=== PATIENT | male | born 1940 | race Caucasian/White ===

== ENCOUNTER 2017-12-31 20:34 | Emergency (ER) | payer MEDICARE, OTHER ==
[~2017-12-31] VITALS: Ht 170.2 cm; Wt 109.1 kg
[2017-12-31 20:39] VITALS: BP 145/89; TEMP 97.3
[2017-12-31 20:44] VITALS: PULSE 74
[2017-12-31 20:57] LABS: BASO # 0.1 (0.0-0.2); BASO % 0.8 % (0.0-2.0); EOS # 0.3 (0.0-0.7); EOS % 4.5 % (0-4.0); GRAN # 4.7 (1.4-6.5); GRAN % 64.7 % (42.2-75.2); HEMATOCRIT 53.7 % (42.0-52.0); LYMPH # 1.2 (1.2-3.4); LYMPH % 16.1 % (20.0-51.0); MEAN CELL VOLUME 103 fl (80.0-100.0); MEAN CORPUSCULAR HEMOGLOBIN 31 pg (27.0-31.0); MEAN CORPUSCULAR HGB CONC 30 g/dl (33.0-37.0); MEAN PLATELET VOLUME 9.9 fl (7.4-10.4); MONO % 13.5 % (1.7-9.3); PLATELET COUNT 192 K/mm3 (130-400); RED BLOOD COUNT 5.23 M/mm3 (4.20-5.60); REDCELL DISTRIBUTION WIDTH-CV 13.9 % (11.5-14.5)
[2017-12-31 21:09] LABS: ARTERIAL BLD GAS TCO2 CT 41.4; ARTERIAL BLOOD GAS BASE EXCESS 6.1 (-2-2); ARTERIAL BLOOD GAS HCO3 38.5 meq/L (22-26); ARTERIAL BLOOD GAS pH 7.22 (7.35-7.45)
[2017-12-31 21:10] LABS: ALANINE AMINOTRANSFERASE 42 U/L (21-72); ALBUMIN 3.8 gm/dL (3.5-5.0); ALKALINE PHOSPHATASE 100 U/L (50-136); ANION GAP 7 mmol/L (7-16); AST,SGOT 31 U/L (15-37); BILIRUBIN,TOTAL 0.6 mg/dL (0.0-1.0); BLOOD UREA NITROGEN 60 mg/dL (9-20); C-REACTIVE PROTEIN 3.1 mg/dL (0.0-0.9); CARBON DIOXIDE 39 mmol/L (22-30); CHLORIDE 96 mmol/L (98-107); CREATININE, serum 1.39 mg/dL (0.66-1.25); GLUCOSE 127 mg/dL (74-106); POTASSIUM 4.7 mmol/L (3.4-5.0); SODIUM 142 mmol/L (137-145); TOTAL PROTEIN 6.9 gm/dL (6.4-8.2)
[2017-12-31 21:12] LABS: ARTERIAL BLOOD GAS PCO2 96.2 mmHg (35-45); ARTERIAL BLOOD GAS PO2 136.5 mmHg (80-100)
[2017-12-31 21:12] LABS: ACETAMINOPHEN < 10 ug/mL (10-30); ALCOHOL(ethanol),MEDICAL < 10 mg/dL
[2017-12-31 21:16] LABS: PROTHROMBIN TIME 11.8 SECONDS (9.7-12.8)
[2017-12-31 21:25] LABS: TROPONIN-I 0.133 ng/mL (0.000-0.034)
== END 2018-01-01 00:40 | disposition short-term general hospital (02) ==
LOC: COL.ER 20:34
PROVIDERS: Emergency Medicine
DX: J18.1 Lobar pneumonia, unspecified organism (principal); I11.0 Hypertensive heart disease with heart failure; J96.90 Respiratory failure, unspecified, unspecified whether with hypoxia or hypercapnia; I50.9 Heart failure, unspecified; J81.1 Chronic pulmonary edema; I21.4 Non-ST elevation (NSTEMI) myocardial infarction; E78.5 Hyperlipidemia, unspecified; Z87.891 Personal history of nicotine dependence
CPT/HCPCS: J1644; J2250; J2310; J2405; J2543; J2704; J3010; Q9967

== ENCOUNTER → 2018-01-12 | Outpatient (CLI) | payer MEDICARE, OTHER | LOC: COL.PUL 08:00 | DX: R06.09 Other forms of dyspnea (principal); R60.9 Edema, unspecified ==

== ENCOUNTER → 2018-02-03 | Outpatient (CLI) | payer MEDICARE, OTHER | LOC: COL.PUL 01-20 08:00 | DX: R06.02 Shortness of breath (principal) ==

== ENCOUNTER 2018-09-25 16:55 | Inpatient (IN) | payer MEDICARE, OTHER ==
[~2018-09-25] VITALS: Ht 170.2 cm; Wt 110.4 kg
[2018-09-25] MEDS ORDERED: PROSCAR 5MG5 MG PO (17:32)
[2018-09-25] MEDS ORDERED: INDERAL 20MG20 MG PO (17:32)
[2018-09-25] MEDS ORDERED: INDERAL40 MG PO (17:32)
[2018-09-25] MEDS ORDERED: PERCOCET 325 MG1 TAB PO (17:33)
[2018-09-25] MEDS ORDERED: FLONASE NASAL S16 GM NAS (17:33)
[2018-09-25] MEDS ORDERED: ZOCOR 20MG20 MG PO (17:34)
[2018-09-25] MEDS ORDERED: LOTENSIN40 MG PO (17:34)
[2018-09-25] MEDS ORDERED: CYMBALTA 30MG30 MG PO (17:34)
[2018-09-25] MEDS ORDERED: AMBIEN 10MG10 MG PO (17:35)
[2018-09-25] MEDS ORDERED: HCTZ 25MG TAB25 MG PO (17:36)
[2018-09-25] MEDS ORDERED: NORCO 325 MG-51 TAB PO (17:37)
[2018-09-25 17:38] LABS: BASO # 0.1 (0.0-0.2); EOS # 0.6 (0.0-0.7); EOS % 9.5 % (0-4.0); GRAN # 3.5 (1.4-6.5); GRAN % 57.9 % (42.2-75.2); HEMATOCRIT 50.7 % (42.0-52.0); HEMOGLOBIN 15.7 g/dl (13.5-18.0); LYMPH # 1.1 (1.2-3.4); LYMPH % 17.4 % (20.0-51.0); MEAN CELL VOLUME 105 fl (80.0-100.0); MEAN CORPUSCULAR HEMOGLOBIN 32 pg (27.0-31.0); MEAN CORPUSCULAR HGB CONC 31 g/dl (33.0-37.0); MEAN PLATELET VOLUME 10.1 fl (7.4-10.4); MONO # 0.9 (0.1-0.6); MONO % 13.9 % (1.7-9.3); PLATELET COUNT 172 K/mm3 (130-400); RED BLOOD COUNT 4.84 M/mm3 (4.20-5.60); REDCELL DISTRIBUTION WIDTH-CV 13.8 % (11.5-14.5)
[2018-09-25 17:41] LABS: PROTHROMBIN TIME 10.9 SECONDS (9.7-12.8)
[2018-09-25 17:52] LABS: ALANINE AMINOTRANSFERASE 14 U/L (21-72); ALBUMIN 3.7 gm/dL (3.5-5.0); ALKALINE PHOSPHATASE 96 U/L (50-136); ANION GAP 6 mmol/L (7-16); AST,SGOT 22 U/L (15-37); BILIRUBIN,TOTAL 0.6 mg/dL (0.0-1.0); BLOOD UREA NITROGEN 67 mg/dL (9-20); CALCIUM 8.4 mg/dL (8.4-10.2); CARBON DIOXIDE 35 mmol/L (22-30); CHLORIDE 96 mmol/L (98-107); CREATININE, serum 1.56 (0.66-1.25); GLUCOSE 121 mg/dL (74-106); LIPASE 156 U/L (23-300); MAGNESIUM 2.5 mg/dL (1.6-2.3); PHOSPHOROUS 4.4 mg/dL (2.5-4.5); POTASSIUM 5.2 mmol/L (3.4-5.0); SODIUM 137 mmol/L (137-145); TOTAL PROTEIN 6.6 gm/dL (6.4-8.2)
[2018-09-25 17:57] LABS: ALCOHOL(ethanol),MEDICAL < 10 mg/dL
[2018-09-25 18:04] LABS: TROPONIN-I < 0.012 ng/mL (0.000-0.035)
[2018-09-25 18:18] LABS: ARTERIAL BLD GAS O2 SATURATION 92.2 % (92-100); ARTERIAL BLD GAS TCO2 CT 34.5; ARTERIAL BLOOD GAS BASE EXCESS 2.7 (-2-2); ARTERIAL BLOOD GAS HCO3 32.3 meq/L (22-26); ARTERIAL BLOOD GAS PCO2 72.1 mmHg (35-45); ARTERIAL BLOOD GAS PO2 71.2 mmHg (80-100); ARTERIAL BLOOD GAS pH 7.27 (7.35-7.45)
--- NOTE | 2018-09-25 19:35 | NUR ---
Dr. Mcdonald here at this time. He gives report of the patient and plans to visit with him when he arrives on the unit.
--- NOTE | 2018-09-25 19:40 | NUR ---
Report called over at this time from DEEPALI Monroe in the ED. Patient will be brought over shortly
--- NOTE | 2018-09-25 20:02 | NUR ---
Patient arrives at this time via stretcher. Patient transfers self to unit bed via stand and pivot. Patient is very angry and not cooperative. After being told the kitchen was closed and there were no diet orders entered yet patient stated "I'm leaving. I can do my own care at home. I need to eat." Patient proceeded to stand up and push this nurse out of the way. Brought Dr. Mcdonald in the room to speak with the patient regarding his behavior. Attached patient to unit monitors. Assessment complete. Patient has an abrasion on his left elbow that is clean and has some dry flaking skin on his right forarm. Lungs sounds are clear and diminished in all crane. Patient's heart rate in bradycardic ranging in the 40's-50's. Patient continues to request food and be uncooperative with staff. Patient provided with snack. No further needs at this time. Will continue to monitor. Call light within reach.
--- NOTE | 2018-09-25 20:15 | NUR ---
Went through patient's belongings with his permission. Patient stated that he does have a wallet with him with "a couple hundred dollars in it". Pulled out wallet and counted money in front of patient. Total of $205. Recommended to patient that he put wallet in the unit safe. He denies and states "just put it in the closet". Patient also has a phone, comb, and 2 changes of clothing. Belongings placed in the room closet.
[2018-09-25 22:41] LABS: COLLECTION METHOD CLEAN CATCH
[2018-09-25 22:54] LABS: PH 5 (5-8); SQUAMOUS EPITHELIAL None Seen /hpf; URINE APPEARANCE Clear; URINE BACTERIA None Seen /hpf; URINE BILIRUBIN Negative (NEGATIVE); URINE BLOOD Negative (NEGATIVE); URINE COLOR Yellow; URINE GLUCOSE Negative (NEGATIVE); URINE KETONE Negative (NEGATIVE); URINE LEUKOCYTE ESTERASE Trace (NEGATIVE); URINE NITRATE Negative (NEGATIVE); URINE PROTEIN(semi-quant) Negative (NEGATIVE); URINE UROBILINOGEN Negative (NEGATIVE)
[2018-09-26] VITALS (7 sets, daily range): BP systolic 103–140; BP diastolic 49–92; PULSE 43–61; TEMP 97.4–98.4
--- NOTE | 2018-09-26 00:05 | NUR ---
Patient was placed on BiPAP by RT Natividad. BiPAP continues to alarm for low tidal volumes due to patient laying on his side and pushing on the mask. Attempted to reposition him for a better mask fit, but patient was uncooperative and pushed back against staff. Mask was unable to be replaced.
--- NOTE | 2018-09-26 04:00 | NUR ---
Patient awake at this time and requesting to use the urinal and have something to drink. Assisted to stand at the side of the bed by standby assist. Coffee and crackers provided to the patient per his request. Vitals have remained stable. No signs of distress. Patient has chronic complaint of pain in his left knee. Discussed with Dr. Mcdonald that pain medications would be restarted in the morning depending on how he did overnight. No further needs at this time. Will continue to monitor, call light within reach.
[2018-09-26 05:25] LABS: ARTERIAL BLD GAS O2 SATURATION 93.1 % (92-100); ARTERIAL BLD GAS TCO2 CT 37.3; ARTERIAL BLOOD GAS BASE EXCESS 5.3 (-2-2); ARTERIAL BLOOD GAS PO2 70.1 mmHg (80-100); ARTERIAL BLOOD GAS pH 7.29 (7.35-7.45)
[2018-09-26 05:26] LABS: ARTERIAL BLOOD GAS PCO2 74.7 mmHg (35-45)
--- NOTE | 2018-09-26 07:44 | NUR ---
Bedside report given to DEEPALI Bates
--- NOTE | 2018-09-26 07:45 | NUR ---
Bedside report received from DEEPALI Hagen.
--- NOTE | 2018-09-26 08:00 | NUR ---
Assessment completed. Pt upset with nursing staff. States he would like to be checked on every hour. Discussed plan of care r/t pulmonary consult and bipap mask. Pt would like to talk to doctors about the plan. Offered to reposition pt in bed. Pt request to sit on side of bed to eat breakfast. Breakfast ordered for pt. Pt watching tv at this time. Call light in reach.
--- NOTE | 2018-09-26 10:10 | NUR ---
Pt remains on bipap mask. Pt trying to talk to nursing staff and encouraged to focus on breathing while on bipap. Pt now resting, VSS. CAll light in reach.
--- NOTE | 2018-09-26 10:55 | NUR ---
KAMILA attempted to meet with the patient. The patient's nurse advised the SW that labs were not back and SW could not enter the room. Dr. Don contacted KAMILA and stated that the patient expressed to him that he wants to update the DPOA-HC the patient has on file. SW to follow-up once entrance is allowed into the room. SW will continue to follow.
[2018-09-26 11:12] LABS: ARTERIAL BLD GAS O2 SATURATION 97.2 % (92-100); ARTERIAL BLD GAS TCO2 CT 37.8; ARTERIAL BLOOD GAS BASE EXCESS 8.3 (-2-2); ARTERIAL BLOOD GAS HCO3 35.9 meq/L (22-26); ARTERIAL BLOOD GAS PO2 92.1 mmHg (80-100); ARTERIAL BLOOD GAS pH 7.38 (7.35-7.45)
--- NOTE | 2018-09-26 11:25 | NUR ---
Pt tolerated bipap mask well. Bipap mask off and placed on 4L/NC to get ready to go to CT.
--- NOTE | 2018-09-26 11:30 | NUR ---
Pt left unit for CT chest via wheelchair with watch technician. Bed linens changed.
[2018-09-26 11:34] LABS: BASO % 0.3 % (0.0-2.0); EOS % 0.2 % (0-4.0); GRAN # 5.2 (1.4-6.5); GRAN % 82.4 % (42.2-75.2); HEMATOCRIT 46.8 % (42.0-52.0); HEMOGLOBIN 14.8 g/dl (13.5-18.0); LYMPH # 0.5 (1.2-3.4); MEAN CELL VOLUME 103 fl (80.0-100.0); MEAN CORPUSCULAR HEMOGLOBIN 33 pg (27.0-31.0); MEAN CORPUSCULAR HGB CONC 32 g/dl (33.0-37.0); MEAN PLATELET VOLUME 9.8 fl (7.4-10.4); MONO # 0.6 (0.1-0.6); MONO % 8.8 % (1.7-9.3); PLATELET COUNT 168 K/mm3 (130-400); RED BLOOD COUNT 4.54 M/mm3 (4.20-5.60); REDCELL DISTRIBUTION WIDTH-CV 13.5 % (11.5-14.5)
[2018-09-26 11:45] LABS: ALBUMIN 3.5 gm/dL (3.5-5.0); BILIRUBIN,TOTAL 0.4 mg/dL (0.0-1.0); CALCIUM 8.4 mg/dL (8.4-10.2); CREATININE, serum 1.1 (0.66-1.25); POTASSIUM 5.6 mmol/L (3.4-5.0); TOTAL PROTEIN 6.2 gm/dL (6.4-8.2)
--- NOTE | 2018-09-26 11:45 | NUR ---
Pt back to ICU [address] chest via wheelchair. Lunch ordered for pt. Pt remains on 4L/NC. Discussed plan of care r/t rest periods with bipap and ABG ordered for this evening. Pt verbalized understanding. Pt watching the news. Call light in reach.
--- NOTE | 2018-09-26 13:50 | NUR ---
Repositioned pt in bed. Pt states back pain improved after pain medication given. Would like to wait a little bit before putting the bipap mask back on. Discussed importance of bipap mask and co2 level with pt. Pt verbalized understanding but would like to wait until 3pm for the bipap mask. Will monitor.
--- NOTE | 2018-09-26 15:09 | NUR ---
Pt placed on bipap mask. Offered urinal to pt to void. Pt states he does not need to go to bathroom right now. Pt resting in bed. VSS. Call light in reach.
[2018-09-26 18:14] LABS: ARTERIAL BLD GAS O2 SATURATION 97.9 % (92-100); ARTERIAL BLD GAS TCO2 CT 32.3; ARTERIAL BLOOD GAS BASE EXCESS 3.7 (-2-2); ARTERIAL BLOOD GAS HCO3 30.6 meq/L (22-26); ARTERIAL BLOOD GAS PCO2 54.8 mmHg (35-45); ARTERIAL BLOOD GAS PO2 105.9 mmHg (80-100); ARTERIAL BLOOD GAS pH 7.37 (7.35-7.45)
[2018-09-26 18:23] LABS: CALCIUM 8.5 mg/dL (8.4-10.2); CREATININE, serum 1.17 (0.66-1.25); POTASSIUM 5.7 mmol/L (3.4-5.0)
--- NOTE | 2018-09-26 19:30 | NUR ---
bedside report given to DEEPALI Morgan.
--- NOTE | 2018-09-26 22:00 | NUR ---
Pt has been awaiting results from [facility]. Has sat in recliner for the last 2 hours, approximately. Agreed to wear Bipap for part of the time. Recommended that pt have a hot cup of water, so pt agreed to tea. Tea drank with only gas as a result at this time.
[2018-09-27] VITALS: BP 124/59; PULSE 55
[2018-09-27 04:00] VITALS: BP 95/40; PULSE 80
[2018-09-27 06:17] LABS: CALCIUM 8.5 mg/dL (8.4-10.2); CREATININE, serum 1.19 (0.66-1.25); POTASSIUM 4.9 mmol/L (3.4-5.0)
--- NOTE | 2018-09-27 07:30 | NUR ---
Bedside report received from DEEPALI Morgan.
[2018-09-27 07:53] LABS: ARTERIAL BLD GAS O2 SATURATION 97.3 % (92-100); ARTERIAL BLD GAS TCO2 CT 34.2; ARTERIAL BLOOD GAS BASE EXCESS 3.9 (-2-2); ARTERIAL BLOOD GAS HCO3 32.3 meq/L (22-26); ARTERIAL BLOOD GAS PCO2 64.2 mmHg (35-45); ARTERIAL BLOOD GAS PO2 104.6 mmHg (80-100); ARTERIAL BLOOD GAS pH 7.32 (7.35-7.45)
--- NOTE | 2018-09-27 08:00 | NUR ---
Assessment completed. Pt resting in bed, bipap mask off and placed on 4L/NC. Pt states he slept too long this morning. Breakfast ordered for pt. Recliner offered to pt but pt would like to sit on side of bed for breakfast. c/o chronic back pain on left side. PRN pain mediation given. Urinal offered to pt but pt refused at this time. Pt states he feels breathing is better this morning. Discussed increase in CO2 level in ABG this am. Call light in reach. Will monitor.
[2018-09-27 08:15] VITALS: BP 139/63; PULSE 64; TEMP 97.6
--- NOTE | 2018-09-27 09:48 | NUR ---
Pt sitting on side of bed. remains on 6L/NC. Spo2 94-95%.
--- NOTE | 2018-09-27 10:21 | NUR ---
Patient lives at home with his (Johanna Jj) in [place], [place] and he plans to return home with his spouse upon recovery. Patient's is supportive to the patient as needed. The patient has no anticipated durable medical equipment at this time, his primary care physician is Dr. Hubert Mcdonald, his pharmacy is [facility], and he does have advance directives of healthcare completed (DNR) but would like the interventions to include intubation which social insurance administrator will help him completed once a notary and necessary family members/DPOA representatives are present. patient services assistant will follow as needed.
--- NOTE | 2018-09-27 11:15 | NUR ---
Pt remains in chair. Placed on bipap mask at 1104. Pt tolerating bipap. VSS. Dietition in room at 1115.
[2018-09-27 12:00] VITALS: BP 144/68; PULSE 51; TEMP 97.5
--- NOTE | 2018-09-27 13:30 | NUR ---
Pt off bipap mask, placed on 4L/NC. Reminded pt not to take off oxygen. Lunch ordered for pt. Pt would like to stay in chair for lunch. Call light in reach.
--- NOTE | 2018-09-27 15:20 | NUR ---
Pt placed back on bipap mask. Pt remains in chair per pt request. Warm blanket placed on back to help with back pain. Call light in reach.
[2018-09-27 16:00] VITALS: BP 156/82; PULSE 57; TEMP 97.4
--- NOTE | 2018-09-27 16:24 | NUR ---
Pt napping in chair. Bipap mask still on. tolerating bipap well. VSS. CAll light in reach.
--- NOTE | 2018-09-27 16:50 | NUR ---
Bipap mask off. Pt placed on 5L/NC. Dinner ordered for pt. Warm blanket placed on back for back pain. Pt would like to stay in recliner at this time. Call light in reach.
--- NOTE | 2018-09-27 19:00 | NUR ---
Report received from Jana Euceda RN. Pt resting in bed with eyes closed although easily awakes and follows directions.
--- NOTE | 2018-09-27 19:15 | NUR ---
report given to DEEPALI langley.
--- NOTE | 2018-09-27 19:15 | NUR ---
Report received from Jana Euceda RN. Pt resting in bed at this time.
[2018-09-27 20:00] VITALS: BP 149/75; PULSE 72
--- NOTE | 2018-09-27 23:50 | NUR ---
Report provided to Denita Cueto RN.
[2018-09-28] VITALS (7 sets, daily range): BP systolic 115–170; BP diastolic 61–81; PULSE 62–84; TEMP 97.2–98.2
--- NOTE | 2018-09-28 02:40 | NUR ---
CHECKED ON PT IN ROOM AND PT ADVISED THAT HE WANTED A BREAK FROM THE BIPAP. CALLED TRENA FROM RT TO ASSIST PT. PT RESTING IN BED WITH CALL LIGHT WITHIN REACH.
--- NOTE | 2018-09-28 05:03 | NUR ---
PT IN BED. RT WAS IN ROOM PUTTING BIPAP BACK ON PT. PT HAD BIPAP OFF FOR ABOUT 2 HOURS. PT WAS ADVISED BY RT THAT HE WILL GET BREAKS OFF THE BIPAP THROUGH OUT THE DAY, BUT NEEDED BIPAP ON NOW. PT AGREED AND PUT BIPAP BACK ON. PT ALSO WAS ADVISED BY RT THAT BIPAP MASK IS THE BIGGEST ONE WE HAVE AND THERE IS NONE ANY BIGGER. PT IS PLEASANT AND COOPERATIVE. PT DENIES ANY PAIN OR DISCOMFORT AT THIS TIME. AND APPEARS TO BE BACK TO SLEEP WITH RESP EVEN AND UNLABORED. NO FURTHER NEEDS AND CALL LIGHT WITHIN REACH.
--- NOTE | 2018-09-28 07:05 | NUR ---
Report received from Denita PALUMBO and care resumed. Pt resting on bipap at this time.
--- NOTE | 2018-09-28 07:16 | NUR ---
Dr Mcdonald here at this time to see pt.
--- NOTE | 2018-09-28 09:48 | NUR ---
Dr Hendrix in to see pt at this time.
[2018-09-28 10:08] LABS: ARTERIAL BLD GAS O2 SATURATION 95.1 % (92-100); ARTERIAL BLD GAS TCO2 CT 29.3; ARTERIAL BLOOD GAS BASE EXCESS 1.1 (-2-2); ARTERIAL BLOOD GAS HCO3 27.8 meq/L (22-26); ARTERIAL BLOOD GAS PCO2 51.2 mmHg (35-45); ARTERIAL BLOOD GAS PO2 77.5 mmHg (80-100); ARTERIAL BLOOD GAS pH 7.35 (7.35-7.45); BASO % 0.1 % (0.0-2.0); GRAN # 8.7 (1.4-6.5); GRAN % 88.9 % (42.2-75.2); HEMATOCRIT 50.7 % (42.0-52.0); HEMOGLOBIN 16.6 g/dl (13.5-18.0); LYMPH # 0.5 (1.2-3.4); LYMPH % 4.6 % (20.0-51.0); MEAN CELL VOLUME 100 fl (80.0-100.0); MEAN CORPUSCULAR HEMOGLOBIN 33 pg (27.0-31.0); MEAN CORPUSCULAR HGB CONC 33 g/dl (33.0-37.0); MEAN PLATELET VOLUME 9.9 fl (7.4-10.4); MONO # 0.6 (0.1-0.6); MONO % 6.1 % (1.7-9.3); PLATELET COUNT 187 K/mm3 (130-400); RED BLOOD COUNT 5.06 M/mm3 (4.20-5.60); REDCELL DISTRIBUTION WIDTH-CV 13.4 % (11.5-14.5)
[2018-09-28 10:18] LABS: CREATININE, serum 1.01 (0.66-1.25); POTASSIUM 4.3 mmol/L (3.4-5.0)
--- NOTE | 2018-09-28 13:03 | NUR ---
Spoke with Dr Hendrix and Dr Mcdonald about pt transfering to floor. OK given by Dr Hendrix and telephone transfer orders received from Dr Mcdonald.
--- NOTE | 2018-09-28 14:08 | NUR ---
Report called to Lou PALUMBO on medical floor. Pt to transfer to room 314.
--- NOTE | 2018-09-28 14:34 | NUR ---
Pt taken by wheelchair to room 314 with chart and belongings. Bedside update given to Virginia PALUMBO.
--- NOTE | 2018-09-28 14:34 | NUR ---
Report revieved from DEEPALI Garrett. Pt arrived by wheel chair to room 314 and oriented to the room. Pt assisted to the chair. Provided pt with jug of water and requested a Pepsi. Connected to oxygen set at 5 L via nasal cannula. Pt. waiting in chair for treatment with respiratory therapy. Call light in reach. Will continue to monitor.
--- NOTE | 2018-09-28 15:00 | NUR ---
Arrived to the room from ICU at this time. No pain or needs reported. Lou Student RN, assisting with cares and medications. The patient was assisted up to the chair with the call light is in place.
--- NOTE | 2018-09-28 16:30 | NUR ---
Pt reports pain as a 5 out of 10. DEEPALI Coleman called Dr. Mcdonald to talk about getting a medication for moderate pain. Percocet 5/325 mg was added to the orders. Percocet 5/325 mg was given. Will reassess pain at 1730. Pt is sitting up in his chair ordering dinner. Call light in reach.
--- NOTE | 2018-09-28 17:40 | NUR ---
Pain reassessed. Pt reports pain at a 5 out of 10 and refused anymore pain medications. Pt is currently sitting in his chair eating supper. Call light in reach. Will continue to monitor.
--- NOTE | 2018-09-28 18:01 | NUR ---
Provided pt with an inofrmation packet about a bipap machine. Pt is sitting in his chair reading the information. Call light in reach. Will conitnue to monitor.
--- NOTE | 2018-09-28 22:36 | NUR ---
Patient assessed around 2014. Denies having pain and discomfort. Voices no needs or concerns. Denies having SOB and dyspnea. 1+ edema to BLE. Refuses to wear SCDs, even when educated on preventing DVTs. Wearing oxygen at 4 L/min via NC. Wears BIPAP at night. Call light is within reach.
--- NOTE | 2018-09-28 23:45 | NUR ---
Report recieved from Jacqueline PALUMBO to assume pt cares. Pt resting in bed, bipap in place. Pt appears restless, c/o chronic back pain rated "5/10"; will give PRN pain med per pt req. Pt denies any other need. Previous shift assessment reviewed et agreed upon. Call light in reach, will monitor.
[2018-09-29] VITALS (7 sets, daily range): BP systolic 133–178; BP diastolic 61–79; PULSE 54–92; TEMP 97.3–98.1
--- NOTE | 2018-09-29 07:38 | NUR ---
Sleeping soundly at this time. No pain or needs apparent. The call light is in place. Report received from DEEPALI Ware.
--- NOTE | 2018-09-29 07:38 | NUR ---
Lary Student, RN Lou Prince assisting with cares and medications today.
--- NOTE | 2018-09-29 07:39 | NUR ---
Report received from DEEPALI Sifuentes. Rounded on the patient. Patient is currently in bed asleep. Patient removed bipap at 0400 per report from the mold shifter nurse. Patient was wearing his nasal cannula at 5 L. Call light in reach. Will continue to monitor.
--- NOTE | 2018-09-29 08:00 | NUR ---
Initial assessment completed. Lou, student RN assisting with cares and medications today. This nurse reviewed her assessment and agree with findings. The call light is in place and the patient calls for assistance as needed.
--- NOTE | 2018-09-29 09:30 | NUR ---
Assessment completed. Pt reports a cough that is not productive. No dizziness when standing or walking. Pt reports pain as a 5 out of 10 and did not request any medication. Pts feet are pale, dry and flaky bilaterally. Pt is wearing his NC at 5 L. Pt has a small scab on his left elbow and a scab on his left back. Pt is resting in his chair eating breakfast. Call light is in reach. Will continue to monitor.
--- NOTE | 2018-09-29 11:00 | NUR ---
PT NOT AVAILABLE
--- NOTE | 2018-09-29 11:30 | NUR ---
Pt. was taken by by wheel chair to radiology for MRI.
--- NOTE | 2018-09-29 12:04 | NUR ---
Pt returned to room 314 via wheelchair from radiology. Telemetry patches were applied and telemetry box was reconnected. Pt is currently sitting in his chair. Pt reconnected to oxygen via nasal cannula at 4 L. Pt is preparing to order lunch. Pt reported his pain as a 5 out of 10 and requested pain medications. Call light in reach. Will continue to monitor.
--- NOTE | 2018-09-29 14:55 | NUR ---
Pt assisted to the bathroom for a shower by SIMON Vásquez.
--- NOTE | 2018-09-29 15:00 | NUR ---
Sputum collection container was delivered to patient. Education was provided about how to collect a specimen correctly.
--- NOTE | 2018-09-29 15:31 | NUR ---
Patient amublated self back to bed after shower. Telemetry leads were reattached and his nasal cannula set at 2 L was reapplied. Patient then ambulated himeself to his chair. Ray stated he would like a diet pepsi. Patient reported his pain at a 2 out of 10. No medications were requested or provided. Call light is in reach. Patient has no other requests at this time. Will continue to monitor.
--- NOTE | 2018-09-29 15:45 | NUR ---
KAMILA met with the patient to review discharge plan. The patient reports that he plans to return home upon discharge. He states that he had built an addition on his home that is handicap accessible for his parents. He states that he plans to stay in that addition. He states that he also may need a bipap upon discharge. SW to follow up with Dr. Mcdonald and continue to follow.
--- NOTE | 2018-09-29 18:00 | NUR ---
Pt is sitting on bench eating his dinner. Call light in reach. Will continue to monitor.
--- NOTE | 2018-09-29 19:09 | NUR ---
Report given to DEEPALI Ware. Rounded on patient. Patient is sitting in his chair. Call light in reach.
--- NOTE | 2018-09-29 19:27 | NUR ---
Report given to DEEPALI Ware to resume care. The call light is in place.
--- NOTE | 2018-09-29 19:33 | NUR ---
Shift assessment complete. Pt resting in bedside recliner, awake, a&o, cooperative c cares. Pt reports continued chronic back pain rated "6/10" at this time; PRN percocet admin per pt req. Pt denies any other c/o. INT patent. O2 per NC. Pt denies further needs. Call light in reach, will monitor.
[2018-09-30 04:16] VITALS: BP 108/59; PULSE 57; TEMP 97.5
[2018-09-30 05:55] LABS: ARTERIAL BLD GAS O2 SATURATION 98.7 % (92-100); ARTERIAL BLD GAS TCO2 CT 31.9; ARTERIAL BLOOD GAS HCO3 30.1 meq/L (22-26); ARTERIAL BLOOD GAS PCO2 59.5 mmHg (35-45); ARTERIAL BLOOD GAS pH 7.32 (7.35-7.45)
[2018-09-30 05:56] LABS: ARTERIAL BLOOD GAS PO2 180.5 mmHg (80-100)
[2018-09-30 07:46] VITALS: BP 139/74; PULSE 60; TEMP 98.2
[2018-09-30 10:47] VITALS: BP 137/81; PULSE 61; TEMP 98.5
--- NOTE | 2018-09-30 11:01 | NUR ---
Dr. Hendrix contacted KAMILA to inform that the patient is going to need a trilogy upon discharge. KAMILA then met with the patient to present and explain the patient choice form for DME. The patient reports that he receives his oxygen through [facility] and chose to receive his trilogy through them. Patient choice form signed by the patient and he was provided a copy. KAMILA contacted and faxed the patient's trilogy order to Margi at [facility]. KAMILA awaiting to hear back from [facility].
[2018-09-30 16:14] VITALS: BP 133/68; PULSE 62; TEMP 98.5
--- NOTE | 2018-09-30 19:03 | NUR ---
Report received from DEEPALI Mak
--- NOTE | 2018-09-30 19:27 | NUR ---
Resting in recliner. Assessment complete. Bases bilaterally diminished otherwise clear. Denies any difficulty breathing or shortness of breath. No labored breathing present. Heart sounds normal. Bowels active x4. Pulses strong throughout. No edema noted. Reports 3/10 back pain. Has PRN percocet ordered, will provide when due. Denies other needs at this time. Call light in reach.
[2018-09-30 20:13] VITALS: BP 114/58; PULSE 63; TEMP 97.6
--- NOTE | 2018-09-30 23:53 | NUR ---
Resting in bed. Denies needs. Denies pain. Call light in reach.
[2018-10-01 00:12] VITALS: BP 112/61; PULSE 57; TEMP 97.6
--- NOTE | 2018-10-01 04:04 | NUR ---
Resting in bed. Denies needs. Call light in reach.
[2018-10-01 05:03] VITALS: BP 126/53; PULSE 62; TEMP 97.5
--- NOTE | 2018-10-01 05:48 | NUR ---
Patient had uneventful night. Wore bipap most of night. Bipap off at 0535 this AM. Denies needs. Call light in reach.
--- NOTE | 2018-10-01 06:35 | NUR ---
Report given to DEEPALI Mak.
[2018-10-01 08:22] VITALS: BP 122/59; PULSE 66; TEMP 98.2
--- NOTE | 2018-10-01 09:00 | NUR ---
Margi, at [facility], reports that the patient was approved for the trilogy and that they will contact the patient to arrange a time to get the trilogy set up in his home. SW to continue to follow.
[2018-10-01 09:15] LABS: ARTERIAL BLOOD GAS PCO2 45.8 mmHg (35-45); ARTERIAL BLOOD GAS pH 7.36 (7.35-7.45)
[2018-10-01 09:16] LABS: ARTERIAL BLD GAS TCO2 CT 26.8; ARTERIAL BLOOD GAS BASE EXCESS -0.5 (-2-2); ARTERIAL BLOOD GAS HCO3 25.4 meq/L (22-26); ARTERIAL BLOOD GAS PO2 79.4 mmHg (80-100)
--- NOTE | 2018-10-01 10:03 | NUR ---
Pt alert and oriented this am. Pt upset at shift change because blood gases had not been done or ordered. Pt did not have a blood gas ordered so updated Dr. Mcdonald and received order for ABG this am. Pt advised. Pt pain in back managed with PRN pain medication. Pt has oxygen on via nasal canula at 3L this am. Pt ambulates independently in room without issue. Pt SOB with activity. Pt has call light in reach. Pt has student nurse assisting this am.
[2018-10-01] MEDS ORDERED: PREDNISONE10 MG PO (10:23)
[2018-10-01] MEDS ORDERED: ZEBETA10 MG PO (10:23)
[2018-10-01] MEDS ORDERED: IPRATROPIUM BROM3 M1 IH (10:23)
--- NOTE | 2018-10-01 12:17 | NUR ---
Pt has discharge orders to go home. Pt given discharge instructions on medications, new equipment scripts, and follow up visits scheduled. Pt IV RF discontinued and pressure dressing applied. Pt has all belongings. Pt has friend from [facility] here to transfer pt. Pt escorted to car via wheelchair without incident.
--- NOTE | 2018-10-01 12:22 | NUR ---
Primary nurse was assisted with [id number] patient care by [employer] student Kori Bagley and [employer] instructor Angela Remy RN-.
--- NOTE | 2018-10-01 13:11 | NUR ---
The patient is to discharge back home today, 10/01. The patient was also in need of a nebulizer and chose to receive the nebulizer at [facility]. KAMILA contacted and faxed the script to Nabeel at [facility]. The patient planned to go to [facility] to try on the different masks and to grape picker all his equipment. KAMILA informed [facility]. KAMILA also presented and explained the IM form to the patient. The patient verbalized understanding, signed, and he was provided a copy. No additional needs at this time.
== END 2018-10-01 12:00 | disposition home or self-care (01) | DRG 189 ==
LOC: COL.ER 16:55 → ICU 18:57 → MEDICAL 09-28 14:20
PROVIDERS: Emergency Medicine; Internal Medicine Critical Care Medicine; Internal Medicine Pulmonary Disease; ADMIT Emergency Medicine
DX: J96.12 Chronic respiratory failure with hypercapnia (principal); E66.2 Morbid (severe) obesity with alveolar hypoventilation; J98.01 Acute bronchospasm; Z99.81 Dependence on supplemental oxygen; J98.6 Disorders of diaphragm; J44.9 Chronic obstructive pulmonary disease, unspecified; G89.29 Other chronic pain; M54.9 Dorsalgia, unspecified; Z79.891 Long term (current) use of opiate analgesic; Z87.891 Personal history of nicotine dependence; Z68.36 Body mass index [BMI] 36.0-36.9, adult
CPT/HCPCS: A9284; J0456; J0696; J1170; J2920; J7050; J7512

== ENCOUNTER → 2018-10-07 | Outpatient (CLI) | payer MEDICARE, OTHER ==
[~2018-10-07] MED LIST: AMBIEN 10MG10 MG PO; CYMBALTA 30MG30 MG PO; FLONASE NASAL S16 GM NAS; HCTZ 25MG TAB25 MG PO; INDERAL 20MG20 MG PO; INDERAL40 MG PO; IPRATROPIUM BROM3 M1 IH; LOTENSIN40 MG PO; NORCO 325 MG-51 TAB PO; PERCOCET 325 MG1 TAB PO; PREDNISONE10 MG PO; PROSCAR 5MG5 MG PO; ZEBETA10 MG PO; ZOCOR 20MG20 MG PO
== END ==
LOC: MHCPAIN 09:05
DX: G89.29 Other chronic pain (principal); M47.817 Spondylosis without myelopathy or radiculopathy, lumbosacral region; M54.16 Radiculopathy, lumbar region; M53.3 Sacrococcygeal disorders, not elsewhere classified
CPT/HCPCS: G0463

== ENCOUNTER → 2018-10-09 | Outpatient (CLI) | payer MEDICARE, OTHER ==
[2018-10-09 15:09] LABS: ARTERIAL BLD GAS O2 SATURATION 89.3 % (92-100); ARTERIAL BLD GAS TCO2 CT 33.1; ARTERIAL BLOOD GAS BASE EXCESS 3.9 (-2-2); ARTERIAL BLOOD GAS HCO3 31.4 meq/L (22-26); ARTERIAL BLOOD GAS PCO2 57.3 mmHg (35-45); ARTERIAL BLOOD GAS PO2 58.9 mmHg (80-100); ARTERIAL BLOOD GAS pH 7.36 (7.35-7.45)
== END ==
LOC: COL.LAB 12:08
PROVIDERS: Emergency Medicine
DX: E87.2 Acidosis (principal)

== ENCOUNTER → 2018-10-15 | Outpatient (CLI) | payer MEDICARE, OTHER | LOC: MHCPAIN 08:39 | DX: M47.817 Spondylosis without myelopathy or radiculopathy, lumbosacral region (principal); M54.16 Radiculopathy, lumbar region | CPT/HCPCS: J1100; Q9967 ==

== ENCOUNTER → 2018-11-04 | Outpatient (CLI) | payer MEDICARE, OTHER | LOC: MHCPAIN 12:26 | DX: G89.29 Other chronic pain (principal); M47.817 Spondylosis without myelopathy or radiculopathy, lumbosacral region; M54.16 Radiculopathy, lumbar region; M53.3 Sacrococcygeal disorders, not elsewhere classified | CPT/HCPCS: G0463 ==

== ENCOUNTER → 2018-11-12 | Outpatient (CLI) | payer MEDICARE, OTHER | LOC: COL.RAD 10:34 | DX: J98.6 Disorders of diaphragm (principal) ==

== ENCOUNTER → 2019-02-23 | Outpatient (CLI) | payer MEDICARE, OTHER ==
[2019-02-23 09:14] LABS: ARTERIAL BLD GAS O2 SATURATION 88.6 % (92-100); ARTERIAL BLD GAS TCO2 CT 27.5; ARTERIAL BLOOD GAS HCO3 26.2 meq/L (22-26); ARTERIAL BLOOD GAS PCO2 43.4 mmHg (35-45); ARTERIAL BLOOD GAS PO2 55.9 mmHg (80-100)
== END ==
LOC: COL.PUL 07:00
PROVIDERS: Internal Medicine Pulmonary Disease
DX: J96.11 Chronic respiratory failure with hypoxia (principal)

== ENCOUNTER → 2019-03-16 | Outpatient (CLI) | payer MEDICARE, OTHER | LOC: MHCPAIN 10:08 | DX: G89.29 Other chronic pain (principal); M47.817 Spondylosis without myelopathy or radiculopathy, lumbosacral region; M54.16 Radiculopathy, lumbar region; M53.3 Sacrococcygeal disorders, not elsewhere classified; M48.061 Spinal stenosis, lumbar region without neurogenic claudication | CPT/HCPCS: G0463 ==

== ENCOUNTER → 2019-03-25 | Outpatient (CLI) | payer MEDICARE, OTHER | LOC: MHCPAIN 10:42 | DX: M47.817 Spondylosis without myelopathy or radiculopathy, lumbosacral region (principal); M54.16 Radiculopathy, lumbar region | CPT/HCPCS: J1100; Q9967 ==

== ENCOUNTER → 2019-04-14 | Outpatient (CLI) | payer MEDICARE, OTHER | LOC: MHCPAIN 09:49 | DX: G89.29 Other chronic pain (principal); M47.817 Spondylosis without myelopathy or radiculopathy, lumbosacral region; M54.16 Radiculopathy, lumbar region; M53.3 Sacrococcygeal disorders, not elsewhere classified; M48.061 Spinal stenosis, lumbar region without neurogenic claudication | CPT/HCPCS: G0463 ==

== ENCOUNTER → 2019-12-07 | Outpatient (CLI) | payer MEDICARE, OTHER ==
[2019-12-07 11:48] LABS: ARTERIAL BLD GAS O2 SATURATION 94.9 % (92-100); ARTERIAL BLD GAS TCO2 CT 28.6; ARTERIAL BLOOD GAS BASE EXCESS 2.1 (-2-2); ARTERIAL BLOOD GAS HCO3 27.2 meq/L (22-26); ARTERIAL BLOOD GAS PCO2 44.1 mmHg (35-45); ARTERIAL BLOOD GAS PO2 74.2 mmHg (80-100); ARTERIAL BLOOD GAS pH 7.41 (7.35-7.45)
== END ==
LOC: COL.PUL 11-30 08:00
PROVIDERS: Internal Medicine Pulmonary Disease
DX: J96.11 Chronic respiratory failure with hypoxia (principal)

== ENCOUNTER → 2019-12-21 | Outpatient (CLI) | payer MEDICARE, OTHER | LOC: COL.PUL 11:30 | DX: J96.11 Chronic respiratory failure with hypoxia (principal); J96.12 Chronic respiratory failure with hypercapnia; Z87.891 Personal history of nicotine dependence ==

== ENCOUNTER → 2019-12-22 | Outpatient (CLI) | payer MEDICARE, OTHER | LOC: COL.RAD 11:10 | DX: M47.22 Other spondylosis with radiculopathy, cervical region (principal); M50.122 Cervical disc disorder at C5-C6 level with radiculopathy; M89.38 Hypertrophy of bone, other site; M48.02 Spinal stenosis, cervical region ==

== ENCOUNTER → 2020-01-19 | Outpatient (CLI) | payer MEDICARE, OTHER | LOC: MHCPAIN 10:06 | DX: M47.812 Spondylosis without myelopathy or radiculopathy, cervical region (principal); M54.2 Cervicalgia; G89.29 Other chronic pain; M54.12 Radiculopathy, cervical region | CPT/HCPCS: G0463 ==

== ENCOUNTER → 2020-02-03 | Outpatient (CLI) | payer MEDICARE, OTHER | LOC: MHCPAIN 10:18 | DX: M47.812 Spondylosis without myelopathy or radiculopathy, cervical region (principal); M54.2 Cervicalgia; M54.12 Radiculopathy, cervical region | CPT/HCPCS: J1100; Q9967 ==

== ENCOUNTER → 2020-11-21 | Outpatient (CLI) | payer MEDICARE, OTHER | LOC: MHCPAIN 10:11 | DX: M47.817 Spondylosis without myelopathy or radiculopathy, lumbosacral region (principal); M54.5 Low back pain; M53.3 Sacrococcygeal disorders, not elsewhere classified | CPT/HCPCS: G0463 ==

== ENCOUNTER → 2020-12-07 | Outpatient (CLI) | payer MEDICARE, OTHER | LOC: MHCPAIN 09:54 | DX: M47.817 Spondylosis without myelopathy or radiculopathy, lumbosacral region (principal); M54.5 Low back pain; M53.3 Sacrococcygeal disorders, not elsewhere classified ==

== ENCOUNTER → 2020-12-13 | Outpatient (CLI) | payer MEDICARE, OTHER | LOC: MHCPAIN 10:06 | DX: M47.817 Spondylosis without myelopathy or radiculopathy, lumbosacral region (principal); M54.5 Low back pain; M53.3 Sacrococcygeal disorders, not elsewhere classified | CPT/HCPCS: G0463 ==

== ENCOUNTER → 2020-12-21 | Outpatient (CLI) | payer MEDICARE, OTHER | LOC: MHCPAIN 10:58 | DX: M47.817 Spondylosis without myelopathy or radiculopathy, lumbosacral region (principal); M54.5 Low back pain; M53.3 Sacrococcygeal disorders, not elsewhere classified ==

== ENCOUNTER → 2020-12-27 | Outpatient (CLI) | payer MEDICARE, OTHER | LOC: MHCPAIN 09:42 | DX: M47.817 Spondylosis without myelopathy or radiculopathy, lumbosacral region (principal); M54.5 Low back pain; M53.3 Sacrococcygeal disorders, not elsewhere classified | CPT/HCPCS: G0463 ==

== ENCOUNTER → 2021-01-08 | Outpatient (CLI) | payer MEDICARE, OTHER ==
[2021-01-08 07:48] LABS: ARTERIAL BLD GAS O2 SATURATION 93.2 % (92-100); ARTERIAL BLOOD GAS BASE EXCESS 2.4 (-2-2); ARTERIAL BLOOD GAS HCO3 27.6 meq/L (22-26); ARTERIAL BLOOD GAS PO2 64.5 mmHg (80-100); ARTERIAL BLOOD GAS pH 7.41 (7.35-7.45)
== END ==
LOC: COL.PUL 07:26
PROVIDERS: Internal Medicine Pulmonary Disease
DX: J96.12 Chronic respiratory failure with hypercapnia (principal); J96.11 Chronic respiratory failure with hypoxia

== ENCOUNTER → 2021-03-15 | Outpatient (CLI) | payer MEDICARE, OTHER | LOC: MHCPAIN 09:56 | DX: M47.817 Spondylosis without myelopathy or radiculopathy, lumbosacral region (principal); M54.50 Low back pain, unspecified; M53.3 Sacrococcygeal disorders, not elsewhere classified; G89.29 Other chronic pain | CPT/HCPCS: G0463; J1100; J2250; J3010 ==

== ENCOUNTER → 2021-03-21 | Outpatient (CLI) | payer MEDICARE, OTHER | LOC: MHCPAIN 10:03 | DX: M47.817 Spondylosis without myelopathy or radiculopathy, lumbosacral region (principal); M53.3 Sacrococcygeal disorders, not elsewhere classified; M54.16 Radiculopathy, lumbar region | CPT/HCPCS: G0463 ==

== ENCOUNTER → 2021-04-17 | Outpatient (CLI) | payer MEDICARE, OTHER | LOC: MHCPAIN 10:42 | DX: M47.817 Spondylosis without myelopathy or radiculopathy, lumbosacral region (principal); M53.3 Sacrococcygeal disorders, not elsewhere classified; M54.50 Low back pain, unspecified | CPT/HCPCS: G0463 ==

== ENCOUNTER → 2021-05-15 | Outpatient (CLI) | payer MEDICARE, OTHER | LOC: MHCPAIN 10:34 | DX: M47.817 Spondylosis without myelopathy or radiculopathy, lumbosacral region (principal); M54.50 Low back pain, unspecified; M53.3 Sacrococcygeal disorders, not elsewhere classified | CPT/HCPCS: G0463 ==

== ENCOUNTER → 2021-11-12 | Outpatient (CLI) | payer MEDICARE, OTHER | LOC: MHCPAIN 10:03 | DX: M47.817 Spondylosis without myelopathy or radiculopathy, lumbosacral region (principal); M54.50 Low back pain, unspecified; M53.3 Sacrococcygeal disorders, not elsewhere classified; M54.2 Cervicalgia | CPT/HCPCS: G0463 ==

== ENCOUNTER → 2022-01-29 | Outpatient (CLI) | payer MEDICARE, OTHER | LOC: MHCPAIN 09:55 | DX: M47.812 Spondylosis without myelopathy or radiculopathy, cervical region (principal); M54.2 Cervicalgia; M54.50 Low back pain, unspecified; M53.3 Sacrococcygeal disorders, not elsewhere classified | CPT/HCPCS: G0463 ==

== ENCOUNTER → 2022-01-30 | Outpatient (CLI) | payer MEDICARE, OTHER ==
[2022-01-30 10:13] LABS: ARTERIAL BLD GAS O2 SATURATION 95.8 % (92-100); ARTERIAL BLD GAS TCO2 CT 24.1; ARTERIAL BLOOD GAS BASE EXCESS -1.1 (-2-2); ARTERIAL BLOOD GAS PCO2 36.7 mmHg (35-45); ARTERIAL BLOOD GAS PO2 82.2 mmHg (80-100); ARTERIAL BLOOD GAS pH 7.41 (7.35-7.45)
== END ==
LOC: COL.PUL 09:58
PROVIDERS: Internal Medicine Pulmonary Disease
DX: J96.11 Chronic respiratory failure with hypoxia (principal); J96.12 Chronic respiratory failure with hypercapnia

== ENCOUNTER → 2022-02-08 | Outpatient (CLI) | payer MEDICARE, OTHER | LOC: COL.PUL 10:57 | DX: J96.11 Chronic respiratory failure with hypoxia (principal); J96.12 Chronic respiratory failure with hypercapnia ==

== ENCOUNTER → 2022-07-22 | Outpatient (CLI) | payer MEDICARE, OTHER | LOC: MHCPAIN 11:10 | DX: M25.561 Pain in right knee (principal); M79.2 Neuralgia and neuritis, unspecified; M17.12 Unilateral primary osteoarthritis, left knee | CPT/HCPCS: G0463 ==

== ENCOUNTER → 2022-08-05 | Outpatient (CLI) | payer MEDICARE, OTHER | LOC: MHCPAIN 11:54 | DX: M17.11 Unilateral primary osteoarthritis, right knee (principal); M79.2 Neuralgia and neuritis, unspecified; M25.561 Pain in right knee | CPT/HCPCS: G0463; J1100; J2250; J3010 ==

== ENCOUNTER → 2023-07-08 | Outpatient (CLI) | payer MEDICARE, OTHER ==
[~2023-07-08] MED LIST changes: +Albuterol 0.083% Neb Soln 2.5 MG/3 ML UD IH ONE
[2023-07-08 10:50] LABS: ARTERIAL BLD GAS O2 SATURATION 95.7 % (92-100); ARTERIAL BLD GAS TCO2 CT 26.2; ARTERIAL BLOOD GAS BASE EXCESS 0.8 (-2-2); ARTERIAL BLOOD GAS PCO2 38.5 mmHg (35-45); ARTERIAL BLOOD GAS PO2 81.1 mmHg (80-100); ARTERIAL BLOOD GAS pH 7.43 (7.35-7.45)
== END ==
LOC: COL.CARD 10:38
PROVIDERS: Internal Medicine Pulmonary Disease
DX: R06.02 Shortness of breath (principal); Z87.891 Personal history of nicotine dependence

== ENCOUNTER → 2023-07-16 | Outpatient (CLI) | payer MEDICARE, OTHER ==
[~2023-07-16] MED LIST changes: -Albuterol 0.083% Neb Soln 2.5 MG/3 ML UD IH ONE
== END ==
LOC: MHCPAIN 10:38
DX: M47.812 Spondylosis without myelopathy or radiculopathy, cervical region (principal); M47.816 Spondylosis without myelopathy or radiculopathy, lumbar region; M25.561 Pain in right knee
CPT/HCPCS: G0463

== ENCOUNTER → 2023-10-14 | Outpatient (CLI) | payer MEDICARE, OTHER | LOC: COL.RAD 13:52 | DX: M50.323 Other cervical disc degeneration at C6-C7 level (principal); M48.02 Spinal stenosis, cervical region; M89.38 Hypertrophy of bone, other site; M48.04 Spinal stenosis, thoracic region ==

== ENCOUNTER → 2024-03-24 | Outpatient (CLI) | payer MEDICARE, OTHER | LOC: MHCPAIN 10:49 | DX: M48.061 Spinal stenosis, lumbar region without neurogenic claudication (principal); M47.817 Spondylosis without myelopathy or radiculopathy, lumbosacral region; G96.191 Perineural cyst; M48.02 Spinal stenosis, cervical region; M43.12 Spondylolisthesis, cervical region | CPT/HCPCS: G0463 ==